=== PATIENT | male | born 1995 | race Caucasian/White ===

== ENCOUNTER 2016-05-24 09:13 | Emergency (ER) | payer OTHER ==
[2016-05-24] MEDS ORDERED: ONDANSETRON HCL 4 MG/2 ML VIAL ONE (10:07)
--- NOTE | 2016-05-24 10:59 | ER PHYSICIAN DOCUMENTATION ---
Physician Documentation [facility] Name:Eddie Cheema Age:20 yrs Sex:Male :1995 Arrival Date:05/24/2016 Time:09:13 Bed3 Private MD: Cristi Weeks Disposition: 05/24/16 10:22 Discharged to Home/Self Care. Impression: Gastroenteritis. - Condition is Good. - Discharge Instructions: GASTROENTERITIS, Viral [5y-Adult]. - Prescriptions for Zofran 4 mg Oral Tablet - take 1 tablet by ORAL route every 12 hours .; 20 tablet. - Medical Reconciliation form form. - Follow up: Private Physician; When: As needed; Reason: Worsening of condition. - Problem is new. - Symptoms have improved. HPI: 05/24 10:16 This 20 yrs old presents to ER via Private Vehicle with complaints of Vomiting. sc 10:16 The patient presents to the emergency department with nausea, with vomiting, with sc diarrhea, without any complaints of abdominal pain. Onset: The symptom(s)/episode began/occurred 2 day(s) ago. Possible causes: unknown. The symptoms are aggravated by movement, food . Associated signs and symptoms: The patient has no apparent associated signs or symptoms, Pertinent negatives: abdominal pain, fever. Historical: - Allergies: No known drug Allergies; - Home Meds: 1. None - PMHx: lymphoma; - PSHx: None; - Tetanus: < 10 years. - Ebola Screening: : Patient negative for fever greater than or equal to 101.5 degrees Fahrenheit, and additional compatible Ebola Virus Disease symptoms. Patient denies exposure to infectious person. Patient denies travel to an Ebola-affected area in the 21 days before illness onset. No symptoms or risks identified at this time. . - Immunization history: Flu Vaccine >1 year. - Social history: Smoking status: Patient states was never smoker of tobacco. Patient uses alcohol weekly. marijuana. ROS: 10:16 Constitutional: Negative for fever, chills, and weight loss. sc Eyes: Negative for injury, pain, redness, and discharge. ENT: Negative for injury, pain, and discharge. Neck: Negative for injury, pain, and swelling. Cardiovascular: Negative for chest pain, palpitations, and edema. Respiratory: Negative for shortness of breath, cough, wheezing, and pleuritic chest pain. Back: Negative for injury and pain. MS/Extremity: Negative for injury and deformity. 10:16 Skin: Negative for injury, rash, and discoloration. sc 10:16 Abdomen/GI: Positive for nausea, vomiting, diarrhea. Exam: Constitutional: This is a well developed, well nourished patient who is awake, alert, and in no acute distress. Head/Face: Normocephalic, atraumatic. Eyes: Pupils equal round and reactive to light, extra-ocular motions intact. Lids and lashes normal. Conjunctiva and sclera are non-icteric and not injected. Cornea within normal limits. Periorbital areas with no swelling, redness, or edema. Neck: Trachea midline, no thyromegaly or masses palpated, and no cervical lymphadenopathy. Supple, full range of motion without nuchal rigidity, or vertebral point tenderness. No meningismus. Chest/axilla: Normal chest wall appearance and motion. Nontender with no deformity. No lesions are appreciated. Cardiovascular: Regular rate and rhythm with a normal S1 and S2. No gallops, murmurs, or rubs. Normal PMI, no JVD. No pulse deficits. Respiratory: Lungs have equal breath sounds bilaterally, clear to auscultation and percussion. No rales, rhonchi or wheezes noted. No increased work of breathing, no retractions or nasal flaring. Abdomen/GI: Soft, non-tender, with normal bowel sounds. No distension or tympany. No guarding or rebound. No evidence of tenderness throughout. Back: No spinal tenderness. No costovertebral tenderness. Full range of motion. 10:17 Neuro: Awake and alert, GCS 15, oriented to person, place, time, and situation. sc Cranial nerves II-XII grossly intact. Motor strength 5/5 in all extremities. Sensory grossly intact. Cerebellar exam normal. Normal gait. 10:17 ENT: Mouth: Oral mucosa: dry. 10:17 Skin: Turgor: is poor. Vital Signs: 09:24 BP 131 / 80; Pulse 79; Resp 16; Temp 98.2; Pulse Ox 94% on R/A; Weight 61.23 kg; Height tg 6 ft. 1 in. (185.42 cm) (R); Pain 1/10; 10:06 BP 108 / 65; Pulse 56; Resp 14; Pulse Ox 95% on R/A; lb 10:57 BP 115 / 71; Pulse 79; Resp 15; Pulse Ox 96% on R/A; Pain 0/10; lb 09:24 Body Mass Index 17.81 (61.23 kg, 185.42 cm) tg MDM: 09:35 Patient medically screened. nv 10:17 Differential diagnosis: viral gastroenteritis, gastroenteritis. Data reviewed: vital sc signs, nurses notes, and as a result, I will continue to observe the patient, administer IV fluids. Dispensed Medications: Completed: NS 0.9% 1000 ml IV at bolus once Completed: NS 0.9% 1000 ml IV at bolus once 10:01 Drug: NS 0.9% 1000 ml; Route: IV; Rate: bolus; Site: left hand; lb 10:24 Follow up: IV Status: Completed infusion; IV Intake: 1000ml nf 10:56 Follow up: IV Status: Completed infusion; IV Intake: 1000ml lb 10:01 Drug: Zofran 4 mg; Route: IVP; Infused Over: 2 mins; Site: left hand; lb 10:55 Follow up: Response: Nausea is decreased lb 10:28 Drug: NS 0.9% 1000 ml; Route: IV; Rate: bolus; Site: left hand; lb 10:56 Follow up: IV Status: Completed infusion; IV Intake: 1000ml lb Signatures: Blaine Belcher RN RN Radha Brownlee RN RN nf Chew, Scott, MD MD nv Sherrill Meeks lb
--- NOTE | 2016-05-24 10:59 | ER NURSING DOCUMENTATION ---
Nurse's Notes [facility] Name:Eddie Cheema Age:20 yrs Sex:Male :1995 Arrival Date:05/24/2016 Time:09:13 Bed3 Private MD: Diagnosis:Gastroenteritis Presentation: 05/24 09:19 Presenting complaint: Patient states: Vomiting since Sunday, Generalized ABD pain. Able tg to eat and drink, also reports diarrhea. Transition of care: patient was not received from another setting of care. 09:19 Method Of Arrival: Private Vehicle tg 09:19 Acuity: ELSA 3 tg 09:25 Notified ED Physician of patient's arrival and CC Dr. Saba notified. nf Triage Assessment: 09:26 General: Appears in no apparent distress, Behavior is cooperative. Pain: Complains of tg pain in abdomen. Neuro: Level of Consciousness is awake, alert. Cardiovascular: Capillary refill < 3 seconds. Respiratory: Respiratory effort is even, unlabored. GI: Reports cramping, diarrhea, nausea, tolerance of fluids, tolerance of food, vomiting. Derm: Skin is pink, warm & dry. Historical: - Allergies: No known drug Allergies; - Home Meds: 1. None - PMHx: lymphoma; - PSHx: None; - Tetanus: < 10 years. - Ebola Screening: : Patient negative for fever greater than or equal to 101.5 degrees Fahrenheit, and additional compatible Ebola Virus Disease symptoms. Patient denies exposure to infectious person. Patient denies travel to an Ebola-affected area in the 21 days before illness onset. No symptoms or risks identified at this time. . - Immunization history: Flu Vaccine >1 year. - Social history: Smoking status: Patient states was never smoker of tobacco. Patient uses alcohol weekly. marijuana. Screenin:27 Infectious Disease Risk Unable to Obtain. Abuse screen: Denies threats or abuse. Denies tg injuries from another. Nutritional screening: No deficits noted. Assessment: 09:43 See Triage Assessment done by same RN. nf Vital Signs: 09:24 BP 131 / 80; Pulse 79; Resp 16; Temp 98.2; Pulse Ox 94% on R/A; Weight 61.23 kg; Height tg 6 ft. 1 in. (185.42 cm) (R); Pain 1/10; 10:06 BP 108 / 65; Pulse 56; Resp 14; Pulse Ox 95% on R/A; lb 10:57 BP 115 / 71; Pulse 79; Resp 15; Pulse Ox 96% on R/A; Pain 0/10; lb 09:24 Body Mass Index 17.81 (61.23 kg, 185.42 cm) tg ED Course: 09:14 Patient arrived in ED. ds 09:15 Cristi Saba MD is Attending Physician. sc 09:21 Triage completed. tg 09:25 Radha Brownlee RN is Primary Nurse. nf 09:28 Valuables Remains with patient. tg 09:42 Inserted peripheral IV: 18 gauge in left Wrist and blood collected. by EMS Marco Antonio. nf 09:43 Door closed. Noise minimized. Lights dimmed. Moved to private room. Verbal reassurance nf given. Warm blanket given. Pillow given. 10:56 Discontinued IV intact, bleeding controlled. lb Administered Medications: Completed: NS 0.9% 1000 ml IV at bolus once Completed: NS 0.9% 1000 ml IV at bolus once 10:01 Drug: NS 0.9% 1000 ml; Route: IV; Rate: bolus; Site: left hand; lb 10:24 Follow up: IV Status: Completed infusion; IV Intake: 1000ml nf 10:56 Follow up: IV Status: Completed infusion; IV Intake: 1000ml lb 10:01 Drug: Zofran 4 mg; Route: IVP; Infused Over: 2 mins; Site: left hand; lb 10:55 Follow up: Response: Nausea is decreased lb 10:28 Drug: NS 0.9% 1000 ml; Route: IV; Rate: bolus; Site: left hand; lb 10:56 Follow up: IV Status: Completed infusion; IV Intake: 1000ml lb Intake: 10:24 IV: 1000ml; Total: 1000ml. nf 10:56 IV: 2000ml (NS); Total: 3000ml. lb 10:56 IV: 1000ml; Total: 4000ml. lb 10:56 IV: 1000ml; Total: 5000ml. lb Outcome: 10:22 Discharge ordered by . sc 10:57 Discharged to home ambulatory. lb 10:57 Condition: stable 10:57 Discharge Assessment: Patient awake, alert and oriented x 3. No cognitive and/or functional deficits noted. Patient verbalized understanding of disposition instructions. 10:57 Instructed on discharge instructions, follow up and referral plans. 10:57 IV D/Reese 10:58 Patient left the ED. lb Signatures: Blaine Belcher RN RN tg Radha Brownlee RN RN nf Felix, Sena, Omar Reg ds Cristi Saba MD MD sc Bollock, Lynda lb
== END 2016-05-24 10:59 | disposition home or self-care (01) ==
LOC: ER 09:13
DX: K52.89 Other specified noninfective gastroenteritis and colitis (principal); E86.0 Dehydration
CPT/HCPCS: 96361; 96374; 99283; J2405

== ENCOUNTER 2016-10-04 10:57 | Emergency (ER) | payer OTHER ==
[2016-10-04] MEDS ORDERED: KETOROLAC TROMETHAMINE 30 MG/ML VIAL ONE (11:35)
[2016-10-04] MEDS ORDERED: PANTOPRAZOLE 40 MG VIAL IV ONE (11:35)
[2016-10-04] MEDS ORDERED: ONDANSETRON HCL 4 MG/2 ML VIAL ONE (11:35)
[2016-10-04] MEDS ORDERED: NORMAL SALINE 100 ML IV ONE (11:37)
[2016-10-04 11:38] LABS: BASOPHILS 0.4 % (0.0-2.0); EOSINOPHILS 0.4 % (0.0-6.0); HEMATOCRIT 52.1 % (42.0-54.0); HEMOGLOBIN 17.6 g/dL (14.0-18.0); LYMPHOCYTES# 2.2 X 10^3uL (0.8-3.8); MEAN CELL VOLUME 91.3 fL (80.0-100.0); MEAN CORPUS. HGB CONCENTRATION 33.9 g/dL (32.0-36.0); MEAN CORPUSCULAR HEMOGLOBIN 30.9 pg (29.0-35.0); MEAN PLATELET VOLUME 7.8 fL (7.4-10.4); MONOCYTES 5.1 % (2.0-10.0); MONOCYTES# 0.4 X 10^3uL (0.2-1.0); NEUTROPHILS 63.1 % (54.0-75.0); NEUTROPHILS# 4.4 X 10^3uL (2.6-6.7); PLATELET COUNT 271 X 10^3uL (130-440); RED BLOOD COUNT 5.71 X 10^6uL (4.20-6.10); RED CELL DISTRIBUTION WIDTH 11.9 % (11.5-14.5)
[2016-10-04 11:41] LABS: A/G RATIO 1.5; ALBUMIN 5.4 g/dL (3.5-5.0); ALKALINE PHOSPHATASE 66 U/L (38-126); ALT 37 U/L (21-72); AST 27 U/L (17-59); BILIRUBIN, TOTAL 0.7 mg/dL (0.2-1.3); BLOOD UREA NITROGEN 16 mg/dL (9-20); CALCIUM 10.7 mg/dL (8.4-10.2); CHLORIDE 105 mmol/L (98-107); EST GLOMERULAR FILTRATION RATE > 60 mL/min; GLUCOSE 110 mg/dL (70-100); LIPASE 47 U/L (23-300); POTASSIUM 3.5 mmol/L (3.5-5.1); SODIUM 145 mmol/L (137-145); TOTAL PROTEIN 9.1 g/dL (6.3-8.2)
[2016-10-04 12:39] LABS: IONIZED CALCIUM - EPMC 1.19 mmol/L (1.12-1.32)
--- NOTE | 2016-10-04 13:01 | ER NURSING DOCUMENTATION ---
Nurse's Notes [facility] Name:Eddie Cheema Age:20 yrs Sex:Male :1995 Arrival Date:10/04/2016 Time:10:57 Bed1 Private MD: Diagnosis:Nausea - Vomiting (not );Hypercalcemia Presentation: 10/04 11:03 Presenting complaint: Presenting complaint: Patient states: 2 weeks patient has had rh vomiting in the AM and nausea. Today patient threw up twice this AM. No abdominal pain currently, pt denies diarrhea as well. Transition of care: Home. 11:03 Acuity: ELSA 3 rh 11:03 Method Of Arrival: Private Vehicle Triage Assessment: 11:06 General: Appears in no apparent distress, Behavior is cooperative. Pain: Denies pain. rh EENT: Oral mucosa is dry. Neuro: Level of Consciousness is awake, alert, obeys commands, Oriented to person, place, time, event. Cardiovascular: Capillary refill < 3 seconds. Respiratory: Airway. GI: Reports nausea, vomiting. : No deficits noted. Derm: Skin is intact, is healthy with good turgor, Skin is pink, warm & dry. Musculoskeletal: Circulation, motion, and sensation intact Range of motion intact in all extremities. Historical: - Allergies: No known drug Allergies; - Home Meds: 1. None - PMHx: None; - PSHx: None; - Tetanus: < 10 years. - Ebola Screening: : Patient negative for fever greater than or equal to 101.5 degrees Fahrenheit, and additional compatible Ebola Virus Disease symptoms. - Immunization history: Flu Vaccine < 1 year. - Social history: Smoking status: Patient states was never smoker of tobacco. Patient uses Medical Marijuana. Screenin:18 Infectious Disease Risk None. Abuse screen: Denies threats or abuse. Denies injuries rh from another. Nutritional screening: No deficits noted. Assessment: 11:18 See Triage Assessment done by same RN. 12:12 Reassessment: Patient states feeling better. Patient states symptoms have improved. lc Patient appears in no apparent distress at this time. 2ND IV INFUSING, MORE LABS DRAWN.. Vital Signs: 11:07 BP 126 / 66; Pulse 91; Resp 16; Temp 98.7(O); Pulse Ox 96% ; Weight 58.97 kg; Height 6 rh ft. 1 in. (185.42 cm); Pain 0/10; 13:00 BP 112 / 68; Pulse 61; Resp 16; Pulse Ox 97% on R/A; Pain 0/10; rh 11:07 Body Mass Index 17.15 (58.97 kg, 185.42 cm) rh ED Course: 11:01 Patient arrived in ED. jl 11:03 Sabiha Au is Primary Nurse. rh 11:03 Harshil Santoyo MD is Attending Physician. be 11:05 Triage completed. rh 11:05 Notified ED Physician Other physician notified: DR GALLAGHER. rh 11:12 Inserted peripheral IV: 20 gauge in left antecubital area and blood collected. INSERTED rh BY ASHLEY JERNIGAN RN. 11:18 Valuables Remains with patient Patient has correct armband on for positive rh identification. Bed in low position. Call light in reach. Side rails up X 1. 12:00 Caleb Benson MD is Referral Physician. be 12:13 Labs drawn. (by ED staff). Sent per order to lab. 12:25 Referral Physician role handed off by Caleb Benson MD be 12:25 [facility] is Referral Physician. be Administered Medications: 11:20 Drug: NS 0.9% 2000 ml; Route: IV; Rate: bolus; Site: left antecubital; rh 12:42 Follow up: IV Status: Completed infusion; IV Intake: 2000ml rh 11:22 Drug: Zofran 8 mg; Route: IVP; Infused Over: 2 mins; Site: left antecubital; 11:37 Follow up: Response: No adverse reaction rh 11:25 Drug: Toradol 30 mg; Route: IVP; Site: left antecubital; 11:37 Follow up: Response: Pain is decreased rh 11:30 Drug: Protonix 40 mg; Route: IVPB; Infused Over: 15 mins; Site: left antecubital; 11:43 Follow up: IV Status: Completed infusion; IV Intake: 100ml rh 11:42 CANCELLED (Physician Discretion): NS 0.9% 1000 ml IV at bolus once be Point of Care Testing: Urine Dip: 12:52 pH: 7.5; ; Specific [place]: 1.020; Ketones: Negative; Glucose: Negative; Protein: rh Negative; Leukocytes: Negative; Nitrite: Negative ; Blood: Non Hemolyzed Trace; Bilirubin: Negative ; Urobilinogen: Normal Intake: 11:43 IV: 100ml; Total: 100ml. rh 12:42 IV: 2000ml; Total: 2100ml. rh Outcome: 11:08 Discharge ordered by . be 13:00 Discharged to home ambulatory. rh 13:00 Condition: improved 13:00 Discharge Assessment: Patient awake, alert and oriented x 3. No cognitive and/or functional deficits noted. Patient verbalized understanding of disposition instructions. 13:00 Discharge instructions given to patient, Instructed on discharge instructions, follow up and referral plans. medication usage, Demonstrated understanding of instructions, medications, Prescriptions given X 1. 13:00 IV D/Reese 13:01 Patient left the ED. 10/05 09:29 Discharge F/U Call: Unable to reach: non-working number nf Signatures: Ashley Jernigan RN Radha Tavarez RN RN nf Elliott, Brian, MD MD be Hofsess, Rachel rh Lietz, Jeff jl
--- NOTE | 2016-10-04 13:01 | ER PHYSICIAN DOCUMENTATION ---
Physician Documentation [facility] Name:Eddie Cheema Age:20 yrs Sex:Male :1995 Arrival Date:10/04/2016 Time:10:57 Bed1 Private MD: Harshil Cervantes Disposition: 10/04/16 11:08 Discharged to Home/Self Care. Impression: Nausea - Vomiting (not ), Hypercalcemia. - Condition is Good. - Discharge Instructions: NAUSEA VOMITING 5yAdult - VOMITING (5y-Adult). - Prescriptions for Zofran 8 mg Oral - take 1 tablet by ORAL route 3 times per day PRN N/V; 20 tablet. - Medical Reconciliation form form. - Follow up: Private Physician; When: As needed; Reason: Recheck today's complaints. Follow up: Caleb Benson MD; Reason: Recheck today's complaints. Follow up: [facility]; When: 1 - 2 days; Reason: Recheck today's complaints, Continuance of care. - Problem is an ongoing problem. - Symptoms have improved. HPI: 10/04 11:31 This 20 yrs old Male presents to ER via Private Vehicle with complaints of be Abdominal Pain. 11:31 Onset: The symptoms/episode began/occurred acutely, today. Onset: The symptoms/episode be began/occurred acutely, 2 weeks, admits to regular marajuana use. The symptoms do not radiate. Associated signs and symptoms: Pertinent positives: nausea, vomiting, Pertinent negatives: anorexia, diarrhea, dysuria, fever, testicular pain. The symptoms are described as vague, primarily vomiting. Modifying factors: The symptoms are alleviated by nothing, the symptoms are aggravated by marajuana. This patient does not have any risk factors related to abdominal pain. Historical: - Allergies: No known drug Allergies; - Home Meds: 1. None - PMHx: None; - PSHx: None; - Tetanus: < 10 years. - Ebola Screening: : Patient negative for fever greater than or equal to 101.5 degrees Fahrenheit, and additional compatible Ebola Virus Disease symptoms. - Immunization history: Flu Vaccine < 1 year. - Social history: Smoking status: Patient states was never smoker of tobacco. Patient uses Medical Marijuana. ROS: 11:34 Abdomen/GI: Positive for nausea, vomiting, Negative for abdominal pain, diarrhea, be abdominal cramps, anorexia. 11:34 All other systems are negative. Exam: 11:35 Constitutional: This is a well developed, well nourished patient who is awake, alert, be and in no acute distress. Head/Face: Normocephalic, atraumatic. Eyes: Pupils equal round and reactive to light, extra-ocular motions intact. Lids and lashes normal. Conjunctiva and sclera are non-icteric and not injected. Cornea within normal limits. Periorbital areas with no swelling, redness, or edema. Chest/axilla: Normal chest wall appearance and motion. Nontender with no deformity. No lesions are appreciated. Back: No spinal tenderness. No costovertebral tenderness. Full range of motion. 11:35 Skin: Warm, dry with normal turgor. Normal color with no rashes, no lesions, and no be evidence of cellulitis. Multiple tatoos noted MS/ Extremity: Pulses equal, no cyanosis. Neurovascular intact. Full, normal range of motion. Neuro: Awake and alert, GCS 15, oriented to person, place, time, and situation. Cranial nerves II-XII grossly intact. Motor strength 5/5 in all extremities. Sensory grossly intact. Cerebellar exam normal. Normal gait. 11:35 Psych: Awake, alert, with orientation to person, place and time. Behavior, mood, and affect are within normal limits. 11:35 Cardiovascular: Exam negative for acute changes. 11:35 Respiratory: Exam negative for acute changes. 11:35 Abdomen/GI: Exam negative for acute changes, Palpation: abdomen is soft and non-tender, in all quadrants. 11:35 : Male external genitalia: Rectal exam: is not applicable. Vital Signs: 11:07 BP 126 / 66; Pulse 91; Resp 16; Temp 98.7(O); Pulse Ox 96% ; Weight 58.97 kg; Height 6 rh ft. 1 in. (185.42 cm); Pain 0/10; 13:00 BP 112 / 68; Pulse 61; Resp 16; Pulse Ox 97% on R/A; Pain 0/10; rh 11:07 Body Mass Index 17.15 (58.97 kg, 185.42 cm) rh MDM: 11:03 Patient medically screened. be 11:38 Differential diagnosis: gastritis, gastroesophageal reflux disease, Hepatitis, be Irritable bowel syndrome, pancreatitis, Ureterolithiasis, urinary tract infection. Data reviewed: vital signs, nurses notes, lab test result(s), and as a result, I will discharge patient, administer IV fluids, NS bolus, Zofran and pantoprazole. 10/04 11:41 Order name: CBC AUTO DIF, MDIF/RMOR IF IND; Complete Time: 11:43 EDMS 10/04 11:42 Interpretation: Normal. be 10/04 11:42 Order name: LACTATE; Complete Time: 11:43 EDMS 10/04 11:42 Interpretation: Abnormal. be 10/04 11:43 Order name: COMPREHENSIVE METABOLIC PANEL; Complete Time: 11:55 EDMS 10/04 12:57 Interpretation: elevated protein, ionized calcium WNL. be 10/04 11:43 Order name: LIPASE; Complete Time: 11:55 EDMS 10/04 11:45 Interpretation: Normal. be 10/04 12:39 Order name: IONIZED CALCIUM PANEL; Complete Time: 12:54 EDMS 10/04 12:53 Interpretation: Normal. be 10/04 15:32 Order name: PARATHYROID HORMONE, INTACT EDMS Dispensed Medications: 11:20 Drug: NS 0.9% 2000 ml; Route: IV; Rate: bolus; Site: left antecubital; rh 12:42 Follow up: IV Status: Completed infusion; IV Intake: 2000ml rh 11:22 Drug: Zofran 8 mg; Route: IVP; Infused Over: 2 mins; Site: left antecubital; lc 11:37 Follow up: Response: No adverse reaction rh 11:25 Drug: Toradol 30 mg; Route: IVP; Site: left antecubital; lc 11:37 Follow up: Response: Pain is decreased rh 11:30 Drug: Protonix 40 mg; Route: IVPB; Infused Over: 15 mins; Site: left antecubital; lc 11:43 Follow up: IV Status: Completed infusion; IV Intake: 100ml rh 11:42 CANCELLED (Physician Discretion): NS 0.9% 1000 ml IV at bolus once be Point of Care Testing: Urine Dip: 12:52 pH: 7.5; ; Specific [place]: 1.020; Ketones: Negative; Glucose: Negative; Protein: rh Negative; Leukocytes: Negative; Nitrite: Negative ; Blood: Non Hemolyzed Trace; Bilirubin: Negative ; Urobilinogen: Normal Signatures: Ashley Williamson, MACK RN lc Harshil Santoyo MD MD be Sabiha Au
== END 2016-10-04 13:01 | disposition home or self-care (01) ==
LOC: ER 10:57 → EEVIPCON 10:57 → ER 13:01
DX: R11.2 Nausea with vomiting, unspecified (principal); E83.52 Hypercalcemia; F12.90 Cannabis use, unspecified, uncomplicated
CPT/HCPCS: 36415; 80053; 82330; 83605; 83690; 83970; 85025; 96361; 96374; 96375; 99284; J1885; J2405